=== PATIENT | male | born 1985 | race Two or more races ===

== ENCOUNTER 2018-12-05 11:19 | Emergency (ER) | payer OTHER ==
[2018-12-05 11:29] VITALS: BP 138/82
[2018-12-05] MEDS ORDERED: Ibuprofen 800 MG Tab PO ONE (11:58)
--- NOTE | 2018-12-05 12:01 | EDM.PDOC ---
Scribed by Keely Dickerson 12/05/18 1145 for Ghulam Huber MD ED HPI GENERAL MEDICAL PROBLEM - General Chief Complaint: Upper Extremity Injury/Pain Stated Complaint: WORK INJURY, SMASHED FINGERS Time Seen by Provider: 12/05/18 11:22 Source of Information: Reports: Patient, RN, RN Notes Reviewed History Limitations: Reports: No Limitations - History of Present Illness INITIAL COMMENTS - FREE TEXT/NARRATIVE: Patient presents to ER with complaint of smashing his left hand in a car door at 10:00 a.m. this morning. He took Tylenol, but has not helped. Pt reports most of the pain is in the left 2nd and 3rd fingers. Denies any other injury. Onset: Today Duration: Constant Location: Reports: Upper Extremity, Left Quality: Reports: Ache Severity: Moderate Improves with: Reports: None Worsens with: Reports: None Associated Symptoms: Reports: No Other Symptoms - Related Data Allergies Allergy/AdvReac Type Severity Reaction Status Date / Time Penicillins Allergy Swelling Verified 12/05/18 11:31 Home Meds: Home Meds Lisinopril 10 mg PO DAILY 07/18/14 [History] metFORMIN HCl [Metformin HCl] 1 tab PO BID 07/18/14 [History] sitaGLIPtin Phos/Metformin HCl [Janumet 50-1,000 MG] 1 tab PO DAILY 12/05/18 [ History] Past Medical History Endocrine/Metabolic History: Reports: Diabetes, Type II, Obesity/BMI 30+ Social & Family History - Family History Family Medical History: Noncontributory - Living Situation & Occupation Living situation: Reports: with Family Occupation: Employed Review of Systems - Review of Systems Review Of Systems: ROS reveals no pertinent complaints other than HPI. ED EXAM, GENERAL - Physical Exam Exam: See Below Exam Limited By: No Limitations General Appearance: Alert, No Apparent Distress, Obese Respiratory/Chest: No Respiratory Distress Cardiovascular: Normal Peripheral Pulses Extremities: Normal Range of Motion, Normal Capillary Refill, Other (Left 2nd and 3rd fingers tender to palpation, no visible swelling, bruising, or deformity , the skin is intact.). No: Joint Swelling Neurological: Alert, Oriented, No Motor/Sensory Deficits Psychiatric: Normal Mood Skin Exam: Warm, Dry, Intact Course - Vital Signs Last Recorded V/S: Last Vital Signs Temp 97.4 F 12/05/18 11:27 Pulse 76 12/05/18 11:27 Resp 16 12/05/18 11:27 BP 138/82 12/05/18 11:27 Pulse Ox 97 12/05/18 11:27 - Orders/Labs/Meds Orders: Active Orders 24 hr Category Date Time Status Hand Comp Min 3V Lt [CR] Urgent Exams 12/05/18 11:26 Taken Ibuprofen [Motrin] Med 12/05/18 11:58 Once 800 mg PO ONETIME ONE - Radiology Interpretation Free Text/Narrative:: XR Left hand: no acute fractures, see Rad. report. Departure - Departure Time of Disposition: 11:59 Disposition: Home, Self-Care 01 Condition: Good Clinical Impression: Crushing injury of finger(s) Qualifiers: Encounter type: initial encounter Qualified Code(s): S67.10XA - Crushing injury of unspecified finger(s), initial encounter - Discharge Information *PRESCRIPTION DRUG MONITORING PROGRAM REVIEWED*: No *COPY OF PRESCRIPTION DRUG MONITORING REPORT IN PATIENT TANA: No Instructions: Crush Injury of the Hand Forms: ED Department Discharge Additional Instructions: Activity as tolerated. Ice pack to left hand/fingers as needed. Use over the counter Acetaminophen (Tylenol) or Ibuprofen (Motrin/Advil) as needed for pain. Follow directions on bottle/package for dosing and precautions. Follow up in clinic if not improving as expected in 4 to 5 days. - My Orders Last 24 Hours: My Active Orders 12/05/18 11:26 Hand Comp Min 3V Lt [CR] Urgent 12/05/18 11:58 Ibuprofen [Motrin] 800 mg PO ONETIME ONE - Assessment/Plan Last 24 Hours: My Active Orders 12/05/18 11:26 Hand Comp Min 3V Lt [CR] Urgent 12/05/18 11:58 Ibuprofen [Motrin] 800 mg PO ONETIME ONE I have read and agree with the documentation that has been completed regarding this visit. By signing this record, I attest that the documentation was completed in my physical presence and is an accurate record of the encounter.
== END 2018-12-05 12:06 | disposition home or self-care (01) ==
LOC: DL.ED 11:19
DX: S67.191A Crushing injury of left index finger, initial encounter (principal); S67.193A Crushing injury of left middle finger, initial encounter; E11.9 Type 2 diabetes mellitus without complications; Z88.0 Allergy status to penicillin; Z79.899 Other long term (current) drug therapy; Z79.84 Long term (current) use of oral hypoglycemic drugs; W23.1XXA Caught, crushed, jammed, or pinched between stationary objects, initial encounter
CPT/HCPCS: 73130; 99283; A9270

== ENCOUNTER 2019-05-31 17:26 | Emergency (ER) | payer OTHER ==
[2019-05-31] MEDS ORDERED: Bacitracin Oint 1 GM U/D Packet TOP ONE (17:35)
[2019-05-31] MEDS ORDERED: Lidocaine 1% 30 ML SDV INJECT ONE (17:35)
[2019-05-31] MEDS ORDERED: Diphtheria,Pertussis(Acell),Tetanus Vaccine 0.5 ML SDV IM ONE (17:35)
[2019-05-31 17:38] VITALS: BP 143/87; PULSE 80
--- NOTE | 2019-05-31 18:07 | EDM.PDOC ---
<Sumeet Abreu - Last Filed: 05/31/19 18:08> ED HPI GENERAL MEDICAL PROBLEM - General Chief Complaint: Upper Extremity Injury/Pain Stated Complaint: CUT FINGER Time Seen by Provider: 05/31/19 17:50 Source of Information: Reports: Patient, RN, RN Notes Reviewed History Limitations: Reports: No Limitations - History of Present Illness INITIAL COMMENTS - FREE TEXT/NARRATIVE: 33 y/o M presents with a laceration to the L hand pinky finger that occurred at 1730. Patient reports that he was preparing meat when he sliced his finger. Patient reports that he did wash with water after cutting. Did apply pressure. Laceration is approx 2 cm on the tip of the pinky and wraps laterally towards the nail. Onset: Today Duration: Constant Location: Reports: Upper Extremity, Left (5th digit) Quality: Reports: Ache Severity: Mild Improves with: Reports: None Worsens with: Reports: None Associated Symptoms: Reports: No Other Symptoms Left Finger-Little Pain Score (Numeric/FACES): 7 - Related Data Allergies Allergy/AdvReac Type Severity Reaction Status Date / Time Penicillins Allergy Swelling Verified 05/31/19 17:36 Home Meds: Home Meds Lisinopril 10 mg PO DAILY 07/18/14 [History] sitaGLIPtin Phos/Metformin HCl [Janumet 50-1,000 MG] 1 tab PO BID 12/05/18 [ History] Cetirizine [ZyrTEC] 10 mg PO DAILY 05/31/19 [History] Past Medical History Cardiovascular History: Reports: Hypertension Endocrine/Metabolic History: Reports: Diabetes, Type II, Obesity/BMI 30+ Social & Family History - Family History Family Medical History: Noncontributory - Tobacco Use Smoking Status *Q: Never Smoker Second Hand Smoke Exposure: No - Caffeine Use Caffeine Use: Reports: Coffee - Recreational Drug Use Recreational Drug Use: No - Living Situation & Occupation Living situation: Reports: with Family Occupation: Employed Review of Systems - Review of Systems Review Of Systems: Comprehensive ROS is negative, except as noted in HPI. ED EXAM, GENERAL - Physical Exam Exam: See Below Exam Limited By: No Limitations General Appearance: Alert, WD/WN, No Apparent Distress Respiratory/Chest: No Respiratory Distress, Lungs Clear, Normal Breath Sounds, No Accessory Muscle Use, Chest Non-Tender Cardiovascular: Normal Peripheral Pulses, Regular Rate, Rhythm, No Edema, No Gallop, No JVD, No Murmur, No Rub Extremities: Normal Inspection, Normal Range of Motion, Non-Tender, Normal Capillary Refill, No Pedal Edema Skin Exam: Warm, Dry, Normal Color, No Rash, Wound/Incision (5th digit of left hand) ED TRAUMA EXTREMITY PROCEDURES - Laceration/Wound Repair Left Digit - 5th (Baby) Lac/Wound Length In cm: 2 Appearance: Superficial Distal NVT: Neuro & Vascular Intact, No Tendon Injury Anesthetic Type: Local Local Anesthesia - Lidocaine (Xylocaine): 1% Plain Local Anesthetic Volume: 2cc Skin Prep: Chlorhexidine (Hibiciens) Exploration/Debridement/Repair: Wound Explored, Wound Margins Revised Closed With: Sutures Suture Size: 4-0 # of Sutures: 3 Suture Type: Prolene, Interrupted, Simple Tetanus Status Addressed: Yes Complications: No Course - Vital Signs Last Recorded V/S: Last Vital Signs Temp 36.3 C 05/31/19 17:32 Pulse 80 05/31/19 17:32 Resp 18 05/31/19 17:32 BP 143/87 H 05/31/19 17:32 Pulse Ox 100 05/31/19 17:32 - Orders/Labs/Meds Orders: Active Orders 24 hr Category Date Time Status Vaccines to be Administered [RC] PER UNIT ROUTINE Care 05/31/19 17:35 Ordered Meds: Medications Discontinued Medications Generic Name Dose Route Start Last Admin Trade Name Freq PRN Reason Stop Dose Admin Bacitracin 1 dose 05/31/19 17:35 05/31/19 17:49 Bacitracin Oint 1 Gm TOP 05/31/19 17:36 1 dose ONETIME ONE Administration Diphtheria/Tetanus/Acell Pertussis 0.5 ml 05/31/19 17:35 05/31/19 17:51 Adacel IM 05/31/19 17:36 0.5 ml .ONCE ONE Administration Lidocaine HCl 30 ml 05/31/19 17:35 05/31/19 17:49 Xylocaine-Mpf 1% INJECT 05/31/19 17:36 10 ml ONETIME ONE Administration Departure - Departure Time of Disposition: 18:08 Condition: Good Clinical Impression: Laceration - Discharge Information *PRESCRIPTION DRUG MONITORING PROGRAM REVIEWED*: Not Applicable *COPY OF PRESCRIPTION DRUG MONITORING REPORT IN PATIENT TANA: Not Applicable Forms: ED Department Discharge Additional Instructions: Keep wound area clean, can shower and bathe as usual but avoid soaking area for an extended time. Lidocaine will wear off after a couple hours so use ibuprofen or tylenol for pain. Look for signs of infections such as increased warmth, redness to the area of the laceration or fever. If you have any of these symptoms you should follow-up in clinic. Sutures will have to be removed after 7 -10 days in clinic by your primary care provider. Sepsis Event Note - Evaluation Sepsis Screening Result: No Definite Risk - Focused Exam Vital Signs: Vital Signs Temp Pulse Resp BP Pulse Ox 05/31/19 17:32 36.3 C 80 18 143/87 H 100 Date Exam was Performed: 05/31/19 Time Exam was Performed: 18:08 - My Orders Last 24 Hours: My Active Orders 05/31/19 17:35 Vaccines to be Administered [RC] PER UNIT ROUTINE - Assessment/Plan Last 24 Hours: My Active Orders 05/31/19 17:35 Vaccines to be Administered [RC] PER UNIT ROUTINE <Joesph Vazquez - Last Filed: 05/31/19 18:17> Course - Re-Assessments/Exams Free Text/Narrative Re-Assessment/Exam: 05/31/19 18:17 I have examined the patient. I have discussed findings and treatment plan with the PA student. I agree with the assessment and plan in the following students note. Sepsis Event Note - Focused Exam Date Exam was Performed: 05/31/19 Time Exam was Performed: 18:16
== END 2019-05-31 18:23 | disposition home or self-care (01) ==
LOC: DL.ED 17:26
DX: S61.217A Laceration without foreign body of left little finger without damage to nail, initial encounter (principal); E11.9 Type 2 diabetes mellitus without complications; I10 Essential (primary) hypertension; Z88.0 Allergy status to penicillin; Z79.899 Other long term (current) drug therapy; Z23 Encounter for immunization; W26.9XXA Contact with unspecified sharp object(s), initial encounter
CPT/HCPCS: 12001; 90715; 99282; J2001; 90471